=== PATIENT | male | born 1965 | race Caucasian/White ===

== ENCOUNTER 2018-07-13 07:27 | Day surgery (SDC) | payer BC ==
[~2018-07-13] VITALS: Ht 182.9 cm; Wt 85.0 kg
[2018-07-13 09:00] VITALS: BP 117/82; PULSE 58; TEMP 97
--- NOTE | 2018-07-13 09:00 | NUR ---
Pt back to [facility] room 2 after procedure. Pt A/Ox4. Assist x1 pt to chair from stretcher. Steady gait. Pt's in room. Pt denies any pain or nausea. Requested water at this time. VSS.
--- NOTE | 2018-07-13 09:01 | NUR ---
Report received from MARIO Mcgregor.
[2018-07-13 09:15] VITALS: BP 113/79; PULSE 51; TEMP 97.2
--- NOTE | 2018-07-13 09:20 | NUR ---
Pt tolerating sips of water. Requested crackers, applesauce and muffin. Pt's remains in room. Pt denies any pain or nausea.
[2018-07-13 09:30] VITALS: BP 129/88; PULSE 58; TEMP 97.2
[2018-07-13 09:45] VITALS: BP 126/89; PULSE 50; TEMP 97.2
[2018-07-13 10:15] VITALS: BP 126/80; PULSE 52; TEMP 97.2
--- NOTE | 2018-07-13 10:46 | NUR ---
Discussed discharge instructions, med list and procedure information. Answered all questions for pt and pt's to their satisfaction. Signed paperwork in chart.
--- NOTE | 2018-07-13 10:48 | NUR ---
Pt discharged from [facility]. Pt left unit via WC to private vehicle driven by spouse.
[2018-07-13 11:27] VITALS: BP 117/85; PULSE 56; TEMP 97.9
== END 2018-07-13 10:48 | disposition home or self-care (01) ==
LOC: SDCO 07:27
DX: K52.839 Microscopic colitis, unspecified (principal); R19.7 Diarrhea, unspecified; Z88.8 Allergy status to other drugs, medicaments and biological substances; Z86.010 Personal history of colon polyps
CPT/HCPCS: J2250; J3010; J7030

== ENCOUNTER → 2019-10-25 | Outpatient (CLI) | payer BC | LOC: ZCOL.LAB 20:59 | DX: H60.509 Unspecified acute noninfective otitis externa, unspecified ear (principal) ==